=== PATIENT | male | born 1940 ===

== ENCOUNTER 2023-12-23 14:57 | Outpatient (CLI) | payer MEDICARE | END 2023-12-23 14:58 | disposition home or self-care (01) | LOC: MADRAD 14:57 | PROVIDERS: ATTEND Nurse Practitioner Family | DX: R10.12 Left upper quadrant pain (principal) | CPT/HCPCS: 74018 ==

== ENCOUNTER 2024-04-08 09:11 | Emergency (ER) | payer MEDICARE, OTHER ==
[2024-04-08] MEDS ORDERED: Lidocaine 4% Patch ONE (10:13)
== END 2024-04-08 10:20 | disposition home or self-care (01) ==
LOC: MADERS 09:11
DX: S20.211A Contusion of right front wall of thorax, initial encounter (principal); I95.1 Orthostatic hypotension; E78.5 Hyperlipidemia, unspecified; N40.1 Benign prostatic hyperplasia with lower urinary tract symptoms; W19.XXXA Unspecified fall, initial encounter
CPT/HCPCS: 99283